=== PATIENT | male | born 1945 | race African-American/Black ===

== ENCOUNTER 2023-12-06 16:01 | Inpatient (IN) | payer MEDICARE, OTHER, SELFPAY ==
[2023-12-06] VITALS (8 sets, daily range): BP systolic 113–157; BP diastolic 48–70; BMI 25.2; BMI 24.0
[2023-12-06 12:07] LABS: % Basophils 0.4 % (0-2); % Eosinophils 4.4 % (0-6); % Immature Granulocytes 0.3 % (0-0.5); % Lymphocytes 7.9 % (20.5-51.1); % Monocytes 10.4 % (1.7-9.3); % Neutrophils 76.6 % (42.2-75.2); Absolute Eosinophils 0.4 10^3/uL (0-0.7); Absolute Lymphocytes 0.8 10^3/uL (1.2-3.4); Absolute Neutrophils 7.5 10^3/uL (1.4-6.5); Hematocrit 40.1 % (39.0-52.0); Hemoglobin 13.2 g/dL (13.0-18.0); Mean Corp Hgb Conc. 32.9 g/dL (33.0-37.0); Mean Corpuscular Hgb 27.6 pg (27.0-31.0); Mean Corpuscular Volume 83.7 fL (80.0-94.0); Mean Platelet Volume 10.8 fL (7.4-10.4); Nucleated Red Blood Cells % 0 % (-); Platelet Count 205 10^3/uL (130-400); Red Blood Cell Count 4.79 10^6/uL (4.70-6.10); Red Cell Dist. Width 15.4 % (11.5-14.5); White Blood Cell Count 9.8 10^3/uL (4.8-10.8)
[2023-12-06 12:19] LABS: ALT (SGPT) 45 U/L (0-50); AST (SGOT) 39 U/L (17-59); Albumin 4.3 g/dl (3.5-5.0); Alkaline Phosphatase 94 U/L (38-126); Blood Urea Nitrogen 28 mg/dl (9-20); Calcium 9.7 mg/dl (8.4-10.2); Carbon Dioxide 26 mmol/L (22-30); Chloride 107 mmol/L (98-107); Glucose 123 mg/dl (70-99); Potassium 4.4 mmol/L (3.5-5.1); Sodium 139 mmol/L (135-145); Total Bilirubin 1.1 mg/dl (0.2-1.3); Total Protein 6.7 g/dl (6.3-8.2); eGFR 35.44
[2023-12-06 12:30] LABS: Troponin I 0.015 ng/ml
--- NOTE | 2023-12-06 13:11 | ED.GENMED ---
History of Present Illness
General
Chief Complaint: Fainting/Passed Out
Source: patient and spouse
Time Seen by Provider: 12/06/23 12:55
Travel History
Have you had any contact with someone who has COVID-19?: No
Do you have any symptoms of coronavirus? Fever > 100 degrees, chills, cough, shortness of breath, sore throat, loss of taste or smell, muscle aches, or headache?: No
History of Present Illness
History of Present Illness:
This patient is a very pleasant 78-year-old male who was at a service yesterday afternoon states he was wearing a sweater and felt very hot and knew he was going to pass out. He says he woke up with many people around him. There was no
reported seizure-like activity, incontinence, tongue biting, or postictal state. He denies associated chest pain or pressure, headache, neck pain, numbness, tingling, focal weakness, dyspnea, or other complaints. He has been feeling generally well
ever since with the exception of difficulty walking due to right knee and left ankle discomfort particular with trying to stand or walk. He did hit his head during this event and is on aspirin and Plavix. He denies headache, change in vision,
photophobia, change in speech, dizziness, neck pain, numbness, tingling, chest pain, dyspnea, abdominal pain, or other complaints. Patient states he has been eating and drinking as usual. He is generally compliant with his medications.
Past History
Past History
ED Past Medical History: CAD, CVA, HTN, Hypercholesterolemia and NIDDM
Social History
Tobacco: Non-smoker
Alcohol: None
Drug: None
Personal:
Living: with family
Phy Exam
Physical Exam
Physical Exam:
GENERAL: Alert , in no apparent distress
EYE: pupils equal and reactive, EOMI, no nystagmus
NECK: Supple, no significant adenopathy.
ENT: o/p clr, mmm, no lenz, no raccoon, no signs of head or facial injury noted on exam.
CARDIAC: Regular rate and rhythm .
LUNGS: Clear breath sounds bilaterally, no acute respiratory distress, no wheezes/rales/rhonchi
ABDOMEN: Soft, without focal tenderness, no r/g, no cvat
NEUROLOGICAL: Alert and oriented, no focal neuro deficits
SKIN: Warm and dry, skin intact.
MUSCULOSKELETAL: No edema, well perfused. There is tenderness to palpation noted at the right knee without bony deformity, full range of motion but does express discomfort doing this. Patient also has tenderness and at that anterior aspect of the
medial malleolus of the left ankle, no associated fibular head or foot tenderness to palpation. No deformity noted. Range of motion preserved. 2+ DP pulses bilaterally.
PSYCH: Normal and appropriate interaction.
Course
Orders/Labs/Results
Orders:
Orders
12/06/23 11:30
Electrocardiogram (*1) Urgent
Reason for Study: Chest Pain
12/06/23 11:49
Complete Blood Count/With Diff Urgent
Comprehensive Metabolic Panel Urgent
Troponin I Urgent
12/06/23 13:10
Morphine Sulfate 2 mg IV NOW STA
Ankle, left 3 view CR [CR Ankle - Left Min 3 Views ] Urgent
Comment:
Reason For Exam: fall
CR Knee- Right 4 Or More View* Urgent
Comment:
Reason For Exam: fall
12/06/23 13:14
CT Head W/o Iv Contrast Stat
Comment:
Reason For Exam: syncope
12/06/23 Dinner
1800 calorie (15 carb) Diabetic
At Your Request: Full Participation
12/06/23 15:01
UA Reflex to Culture [Urinalysis Reflex To Culture] Stat
Date Specimen was Collected: 12/06/23
Time Specimen was Collected: 14:42
Urine Sodium Stat
Date Specimen was Collected: 12/06/23
Time Specimen was Collected: 14:42
12/06/23 15:27
Admit/Transfer Patient As Directed
Co-Sign Provider:
Level of Care: Inpatient admission
Assign to:: Telemetry
Physician / Group: hosp
Diagnosis: Syncope
Reason for Telemetry: Medication for Arrhythmia
Date to Stop Telemetry: 12/08/23
Time to Stop Telemetry: 11:00
Reason for Hospitalization: syncope/ ANDREA
Expected length of stay greater than two midnights?: Yes
ELOS- Estimated Length of Stay in days: 3
I certify the patient meets the requirements for IP care: Yes
12/06/23 15:31
Code Status As Directed
Resuscitation Status: Full Code
12/06/23 15:36
NEPHROLOGY CONSULT Routine
Consulting Provider: Blanche Mitchell
Was physician already notified: Yes
12/06/23 15:40
CARDIOLOGY CONSULT Routine
Consulting Provider: Akbar Cao
Was physician already notified: Yes
12/06/23 15:48
Dextrose 50%-Water [Dextrose 50% Syringe] 12.5 grams IV [id number] PRN
Glucagon [GlucaGen] 1 mg IM PRN PRN
Bedside Glucose Monitoring As Directed
Frequency: AC&HS
Comment: Change to q6h if pt on TPN, tube feeding or not eating
12/06/23 16:00
HydrALAZINE [Apresoline] 50 mg PO TID
12/06/23 16:04
0.9% Sodium Chloride 1000 ml [Nss] 1,000 ml IV 60 mls/hr
Acetaminophen [Tylenol] 650 mg PO Q4HPRN PRN
Albuterol Nebs [Ventolin Nebules] 2.5 mg INH R Q4HPRN PRN
Albuterol [ProAIR HFA INHALER] 2 puff INH R Q4HPRN PRN
Nitroglycerin Sublingual [Nitrostat (Sublingual)] 0.4 mg SL [id number] PRN
12/06/23 16:04
Activity As Directed
Activity Level: With Assistance
Intake/ Output As Directed
Frequency: Per unit guidelines
Vital Signs As Directed
Frequency: Per unit guidelines
DX Deep Vein Thrombosis Video Routine
12/06/23 16:30
Insulin Aspart Corrective Low [Novolog Flexpen-Low Resistance] See Protocol SC AC
12/06/23 17:55
Troponin I Q6H
12/06/23 18:00
Atorvastatin [Lipitor] 80 mg PO QPM
Pantoprazole [Protonix] 40 mg PO QPM
12/06/23 20:00
Allopurinol [Zyloprim] 100 mg PO BID
Amlodipine [Norvasc] 5 mg PO BID
Heparin 5,000 units SC Q12
12/06/23 22:04
Troponin I Q6H
12/07/23 06:16
Basic Metabolic Panel IN AM
Glycohemoglobin (HgbA1c) IN AM
Troponin I Q6H
12/07/23 08:00
Aspirin Chewable [Low Strength Aspirin] 81 mg PO DAILY
Clopidogrel Bisulfate [Plavix] 75 mg PO DAILY
Dapagliflozin [Farxiga] 10 mg PO DAILY
Ezetimibe [Zetia] 10 mg PO DAILY
ISOSORBIDE MONOnitrate ER [Imdur (Extended Release)] 60 mg PO DAILY
Tiotropium [place] 2.5 Mcg [Spiriva Respimat 2.5 Mcg] 2 puff INH R DAILY
12/08/23 06:00
Basic Metabolic Panel IN AM
12/08/23 11:00
DC Protocol for Telemetry ONCE
12/09/23 06:00
Basic Metabolic Panel IN AM
Abnormal Lab Results
12/06/23 12/06/23
11:49 15:01
MCHC 32.9 L g/dL
(33.0-37.0)
RDW 15.4 H %
(11.5-14.5)
MPV 10.8 H fL
(7.4-10.4)
Absolute Neuts (auto) 7.5 H 10^3/uL
(1.4-6.5)
Absolute Lymphs (auto) 0.8 L 10^3/uL
(1.2-3.4)
Absolute Monos (auto) 1.0 H 10^3/uL
(0.1-0.6)
Neutrophils % 76.6 H %
(42.2-75.2)
Lymphocytes % 7.9 L %
(20.5-51.1)
Monocytes % 10.4 H %
(1.7-9.3)
BUN 28 H mg/dl
(9-20)
Creatinine 1.9 H mg/dL
(0.7-1.3)
Glucose 123 H mg/dl
(70-99)
Urine Glucose 3+ A
(Negative)
12/06/23 11:49
12/06/23 11:49
Vital Signs
Initial and Last Documented VS:
Initial Vital Signs
Temp Pulse Resp BP Pulse Ox
98.7 F 66 20 151/54 93
12/06/23 11:23 12/06/23 11:23 12/06/23 11:23 12/06/23 11:23 12/06/23 11:23
Last Documented Vital Signs
Temp Pulse Resp BP Pulse Ox
99.1 F 70 20 154/64 100
12/07/23 11:24 12/07/23 11:24 12/07/23 11:24 12/07/23 11:24 12/07/23 11:24
*Critical Care Note
Total Time (30-74mins, 75-104mins- exclusive of procedures): Not Applicable
Update Note
Update Note:
Patient presents to the Emergency Department with __syncopal event
Number and Complexity of Problems Addressed at the Encounter
� Chronic conditions affecting care:
� Acute Exacerbation and/or Progression of Chronic Illness:
� Differential Diagnosis includes: But not limited to dehydration, electrolyte disturbance, vasovagal events, etc. etc.
Amount and/or Complexity of Data to be Reviewed and Analyzed
� I performed an independent evaluation of and my interpretation is:
EKG: Read by me, normal sinus rhythm Mobitz 1, no acute ischemia
CT:
Xrays:no fx noted, read by me
Laboratory Studies:new onset renal insufficiency
Other:
� Review of other/old records reveals: Patient was hospitalized July 2023 with a non-STEMI noted to have a apical LAD lesion, had medication changes and is maintained on aspirin and Plavix. He developed renal insufficiency at
that time was thought to be prerenal in nature, but improved by discharge.
� Clinical information was obtained by an independent historian: who is at bedside
� Prescriptions/Medications Considered but not given:
� Further testing considered but not performed:
Risk of Complications and/or Morbidity or Mortality of Patient Management
� Social determinants of health affecting care:
� Discussion with other providers (PCP, Hospitalists, Consultants, etc):
� Escalation of care including admission/observation vs risk of discharge considered: 78 yr old male s/p syncope with new onset renal insufficiency (GFR now 35, nl >60). Does have variety of meds that may be contributing to this.
C/o knee/ankle pain however no fx noted, suspect strain clinically. Case d/w hospitalist Dr Moody for admission.
ED Attending Note
-
Portions of this chart may have been created with voice recognition software.� Occasional wrong word or��sound alike� substitutions may have occurred due to the inherent limitations of voice recognition software.
Discharge Plan
Departure
Patient Disposition: Admit
Date of Disposition: 12/06/23
Time of Disposition: 14:52
Admit to: Telemetry
Presentation/result/management discussed w/ accepting MD/DO: Hospitalist
Condition: Fair
Discharge Problem:
Acute renal insufficiency, Syncope
Interventions
Interventions:
*Risk Screen - Suicide Last Done: 12/06/23 11:25
*General Assessment Last Done: 12/06/23 11:25
*Neglect/Abuse Screening Last Done: 12/06/23 11:25
ED- Fall Risk Assessment Last Done: 12/06/23 19:25
*ED COVID-19 Vaccine History Last Done: 12/06/23 13:11
*Nursing Disposition Last Done: 12/06/23 19:25
ED- Cardiac Assessment Last Done: 12/06/23 13:11
ED- Neurological Assessment Last Done: 12/06/23 13:07
Discharge Date and Time
Discharge Date/Time: 12/06/23 19:25
[2023-12-06] MEDS: MORPHINE SULFATE 2 MG IV (13:21)
[2023-12-06 15:08] LABS: Urine Albumin Trace (Neg - Trace); Urine Bilirubin Negative (Negative); Urine Character Clear (Clear); Urine Color Yellow; Urine Glucose 3+ (Negative); Urine Ketone Negative (Negative); Urine Leukocyte Negative (Negative); Urine Nitrite Negative (Negative); Urine Occult Blood Negative (Negative); Urine Specific Gravity 1.015 (<1.030); Urine Urobilinogen Negative (Neg - 1+)
--- NOTE | 2023-12-06 15:50 | HPS.HSE ---
Family Physician
-
Family Physician: LUCIANA Gabriel
Chief Complaint
-
Passed out at a memorial service yesterday
History of Present Illness
78-year-old male who was at a service yesterday afternoon states he was wearing a sweater and felt very hot and knew he was going to pass out.� He says he woke up with many people around him.
� There was no reported seizure-like activity, incontinence, tongue biting, or postictal state.�
He denies associated chest pain or pressure, headache, neck pain, numbness, tingling, focal weakness, dyspnea, or other complaints.� He has been feeling generally well ever since with the exception of difficulty walking due to right knee and left
ankle discomfort particular with trying to stand or walk.� He did hit his head during this event and is on aspirin and Plavix.
� He denies headache, change in vision, photophobia, change in speech, dizziness, neck pain, numbness, tingling, chest pain, dyspnea, abdominal pain, or other complaints.� Patient states he has been eating and drinking as usual.� He is generally
compliant with his medications.
Medical History
Past Medical History
Past Medical History: Reports Arrhythmia (Second-degree Mobitz 1), CAD (NSTEMI in July), COPD, Dementia, Hypercholesterolemia, NIDDM, ME and Renal Failure
Past Surgical History: Reports None and Cardiac
Social History
Tobacco: Non-smoker
Alcohol: None
Drug: None
Personal:
Living: With Family
Employment: Retired
Family History
Family History: Not pertinent
Allergies / Home Medications
Allergies reflects when Allergies were last updated in [facility].
Home Medications with original date entered in [facility]
Allergy/Medication List:
Allergies
Allergy/AdvReac Type Severity Reaction Status Date / Time
No Known Allergies Allergy Verified 07/23/23 22:26
Home Medications
allopurinol 100 mg tablet 100 mg PO BID Gout 07/26/20
pantoprazole 40 mg tablet,delayed release 40 mg PO QPM Gastrointestinal Issue 07/26/20
albuterol sulfate 90 mcg/actuation aerosol inhaler 2 puff inhalation R Q4HPRN PRN sob/wheezing 07/03/23
atorvastatin 40 mg tablet 80 mg PO QPM High Cholesterol 07/03/23
colchicine 0.6 mg tablet 0.6 mg PO DAILYPRN PRN gout 07/03/23
dapagliflozin propanediol 10 mg tablet (Farxiga) 10 mg PO DAILY Diabetes 07/03/23
furosemide 40 mg tablet 40 mg PO DAILY Fluid Retention/Swelling 07/03/23
umeclidinium 62.5 mcg-vilanterol 25 mcg/actuation powdr for inhalation (Anoro Ellipta) 1 inh inhalation R DAILY Lung/Breathing Issues 07/03/23
aspirin 81 mg chewable tablet 81 mg PO DAILY Blood Clot Prevention/Tx 07/23/23
clopidogrel 75 mg tablet 75 mg PO DAILY #30 tabs 07/27/23
ezetimibe 10 mg tablet 10 mg PO DAILY #30 tabs 07/27/23
isosorbide mononitrate 60 mg tablet,extended release 24 hr 60 mg PO DAILY #30 tabs 07/27/23
nitroglycerin 0.4 mg sublingual tablet 0.4 mg sublingual [id number] PRN ANGINA #30 tabs 07/27/23
amlodipine 5 mg tablet 5 mg PO DAILY Blood Pressure 12/06/23
glimepiride 2 mg tablet 2 mg PO DAILY 12/06/23
hydralazine 50 mg tablet 50 mg PO TID 12/06/23
metformin 500 mg tablet,extended release 24 hr 500 mg PO DAILY 12/06/23
Review of Systems
-
Unable to obtain full review of systems at this time due to: Dementia (Mild)
History Source: Patient and Family
Cardiac: Reports No Symptoms
Abdomen/GI: Reports No Symptoms
Musculoskeletal: Reports Muscle Pain, Muscle Stiffness and Edema (Left ankle swelling)
Physical Exam
Vital Signs
Vital Signs
Temp Pulse Resp BP Pulse Ox
98.7 F 66 21 157/70 95
12/06/23 11:23 12/06/23 13:00 12/06/23 13:00 12/06/23 13:00 12/06/23 13:00
Physical Exam
General: Well Developed
HEENT: NormoCephalic (Slight bump or bruise in the left occipital parietal region no fluctuance)
Respiratory: Clear
Cardiac: S1/S2 and Regular Rhythm (Mobitz 1 block)
GI: Soft
Musculoskeletal: Edema, Left Lower Extremity (Ankle tender swollen)
Neuro: Awake, Alert, Oriented, AO x 3 and No Motor Deficits
Psych: Calm
Laboratory Results
-
12/06/23 11:49
12/06/23 11:49
Laboratory Results
Total Bilirubin 1.1 mg/dl (0.2-1.3) 12/06/23 11:49
AST 39 U/L (17-59) 12/06/23 11:49
ALT 45 U/L (0-50) 12/06/23 11:49
Alkaline Phosphatase 94 U/L (38-126) 12/06/23 11:49
Troponin I 0.015 ng/ml 12/06/23 11:49
Data Reviewed
-
Critical Care Time (in minutes): 67
Diagnostic Radiology: Report Reviewed by me (X-rays of the left knee and ankle pending)
CT Scan: Report Reviewed by me (Old 3 cm cortical infarct posterior lateral aspect of the left frontal lobe/no acute findings) and Discussed with Physician
Lab Data: Labs Reviewed by me
Impression/Plan
-
IMPRESSION:
78-year-old male who was at a service yesterday afternoon states he was wearing a sweater and felt very hot and knew he was going to pass out.� He says he woke up with many people around him.
� There was no reported seizure-like activity, incontinence, tongue biting, or postictal state.�
He denies associated chest pain or pressure, headache, neck pain, numbness, tingling, focal weakness, dyspnea, or other complaints.� He has been feeling generally well ever since with the exception of difficulty walking due to right knee and left
ankle discomfort particular with trying to stand or walk.� He did hit his head during this event and is on aspirin and Plavix.
� He denies headache, change in vision, photophobia, change in speech, dizziness, neck pain, numbness, tingling, chest pain, dyspnea, abdominal pain, or other complaints.� Patient states he has been eating and drinking as usual.� He is generally
compliant with his medications.
Syncopal event
-Unclear etiology may have been vasovagal/
-Known history of Mobitz 1 heart block which persists
-Unclear may have had further block as cause of event
-Not on any chronotropic medications
-Last documented Mobitz 1 was back in July at time of NSTEMI at that time beta-blockade was stopped
-Telemetry/cardiology consultation
Acute kidney injury on chronic kidney disease stage IIIb
-Hold nephrotoxic's
-Hold furosemide
-Hold glimepiride
-Cautious hydration
-Continue Farxiga for now
-Trend BMP
-Nephrology consult
Coronary artery disease
-Prior RCA stent/continue Plavix and aspirin
-Isosorbide to continue
-Recent NSTEMI with apical LAD occlusion noted preserved EF
-Continue statin and Zetia
Okw-twmcnjv-mndegjfof diabetes mellitus
-Blood sugar at the time of event no documented hypoglycemia
-Hold glimepiride
-Low-dose sliding scale coverage
-Hold metformin
Essential hypertension
-Continue amlodipine, hydralazine,
At time of syncopal event
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
-X-rays of the knee and ankle pending
-PT/OT assessment if inability to weight-bear will get orthopedic consultation pending x-ray results
PLAN: Admit to telemetry
Full CODE STATUS
DVT prophylaxis with heparin
[2023-12-06 16:16] LABS: Glucose - Point of Care 71 mg/dl (70-99)
[2023-12-06] MEDS: APRESOLINE 50 MG PO ×2 (16:18→20:47)
[2023-12-06] MEDS: NSS 1000 IV (16:19)
--- NOTE | 2023-12-06 16:37 | CON.CAR ---
Addendum entered and electronically signed by Akbar Cao MD 12/06/23 17:27:
78-year-old man well known to me with a history of type I second-degree AV block, now admitted with a syncopal episode when attending awake on December 04. He had been standing at the [employer] [place] [employer] [place], became hot, somewhat nauseated, walked to the
window and fell sustaining close head injury and knee and left foot injury. He called [facility] cardiology and was instructed to present to the emergency department. He has no lightheadedness, his dyspnea is baseline given his COPD and prior
right lobectomy of the right and left lungs. Was doing well when last seen in the office in November 2023. 1 other syncopal episode 2 or 3 years ago
PMH: HFpEF, CAD, Xience stents 2019 in proximal to mid RCA, occluded apical LAD by cardiac catheterization 2022, hypertension, mild PAD, COPD, stage IIIb chronic kidney disease, lung cancer with right lobectomy in the , Pancoast tumor left lung
2007, treated with radiation, lobectomy, chemo, hyperlipidemia, diabetes, history of TIA, hypertension hyperlipidemia CVA
SH: , retired, likely going back to work
PSH/FH: See below
Allergies none
Outpatient meds, see summary screen
ROS negative except as above
149/56, pulse 66, resp rate 21, head neck exam unremarkable, diminished breath sounds, JVD okay intermittently irregular, no obvious murmurs, abdomen benign, extremities not much edema, left knee and foot and ankle surgeon, neuro nonfocal
7-day monitor November 2023: First-degree AV block with second-degree AV block and 2-1 conduction, third-degree AV block present at times, with junctional escape and A-V dissociation, no pauses over 2 seconds, average heart rate 62 bpm
Hemoglobin 13.2, white count 9.8, platelets 205, creatinine 1.9, was 1.3 in July, creatinine was 1.7 in September
ECG sinus rhythm with second-degree AV block, relatively high-grade and junctional escape producing frequent A-V dissociation
Assessment:
Presented 12/06/2023 with syncope, dizziness
ANDREA on CKD
Bradycardia with 2nd Type 2 heart block
CAD
s/p overlapping 3.5 mm and 3.0 mm Xience stents�to RCA 07/26/20
stable and patent RCA stents, new apical LAD 100% occlusion and stable vs slightly angiographically worse 70-80% Diag-1 lesion by cath 07/26/23Second-degree AV block- chronic
Chronic heart failure with preserved ejection fraction
COPD
Chronic kidney disease stage IIIb
History of lung cancer status post lobectomy
Diabetes type 2
Hypertension
Hyperlipidemia
TIA
Plan:
He presents with syncope that sounds classically vagal, but he has fairly advanced second-degree AV block as well, complicating his management and decision making regarding necessity of pacemaker implantation. Under normal circumstances, pacemaker
implantation is not indicated.
He has ANDREA on CKD, but this is relatively modest, with a history of HFpEF and his most recent creatinine was 1.7. We will need to be cautious in terms of hydration, and I would restart furosemide soon.
Will discuss with electrophysiology as to whether or not we should continue to follow expectantly with second-degree AV block. Although he had second-degree AV block on monitor earlier this year, his average heart rate was 60 bpm and he is rarely
symptomatic to the best of our knowledge.
Further management to be based upon the results of his clinical course.
Original Note:
Consultation
Consultation Request
Date/Time Consultation Requested: 12/06/2023
Date/Time Consultation Performed: 12/06/2023
Requesting Provider: Dr. Hairston
Performing Provider: Melissa Nunez PA-C for Dr. PHILIP Cao
Reason for Consultation: Syncope
Medical History
-
History of Present Illness:
Patient is a 78-year-old male with complex past medical history including coronary artery disease status post RCA PCI 2019, second-degree heart block, chronic heart failure with preserved ejection fraction, chronic kidney disease stage IIIb, COPD,
peripheral vascular disease, hypertension, hyperlipidemia, diabetes type 2, and status post right lobectomy with history of lung cancer in 1989 and 2007. Patient reports he was recently seen by Dr. Cao in early November 2023 and noted be
hypertensive. His hydralazine was increased to 50 mg 3 times daily for hypertension. He wore an outpatient monitor which was completed 11/12/2023 which demonstrated predominantly sinus rhythm with first-degree AV block as well as second-degree type
I with 2-1 conduction which accounted for less than 1% of total time and high-grade AV block with junctional escape producing AV disassociation during sleep. There were no pauses in excess of 2 seconds. There was very rare PVCs.
Patient reports he went to [employer] yesterday morning and forgot to take his morning medications. When he returned from [employer] he took them late morning/early afternoon and then proceeded to go to a week for a close friend that he lost. He reports
he started to feel warm and flush and got dizzy. Next thing you know he woke up on the floor with people standing around him. He denied loss of bowel or bladder function. Given complaints of difficulty walking with knee and ankle discomfort he
decided to come to the emergency department for evaluation. He also admitted to hitting his headache. In emergency nursing department chairperson CT was unremarkable. Troponin was negative x 1. EKG showed sinus rhythm with second-degree AV block type I. Blood
pressure was stable. He was noted to have ANDRAE with creatinine of 1.9. Patient admits that he probably was not well-hydrated yesterday or today. Currently he denies chest pain, shortness of breath, dizziness, lightheadedness, edema, orthopnea or
PND. He reports his weight has been stable at home. He has been compliant taking his medications.
PMH:
CAD
s/p overlapping 3.5 mm and 3.0 mm Xience stents�to RCA 07/26/20
stable and patent RCA stents, new apical LAD 100% occlusion and stable vs slightly angiographically worse 70-80% Diag-1 lesion by cath 07/26/23
Second-degree AV block- chronic
Chronic heart failure with preserved ejection fraction
COPD
Chronic kidney disease stage IIIb
History of lung cancer status post lobectomy
Diabetes type 2
Hypertension
Hyperlipidemia
TIA
Past Medical History
Past Medical History: Other (see hpi)
Past Surgical History: Cardiac (Right coronary artery ESE x 2 RCA 2019) and Other (Thoracotomy 2007, right lung lobectomy 1996, 2007, hernia repair, bilateral cataract extraction)
Social History
Tobacco: Former Smoker
Alcohol: None
Drug: None
Personal:
Living: With Family
Employment: Retired
Family History
Family History: Diabetes, Hypertension and Other ( stroke)
Allergies / Home Medications
Allergy/AdvReac Type Severity Reaction Status Date / Time
No Known Allergies Allergy Verified 07/23/23 22:26
Medication Instructions Recorded Confirmed Type
allopurinol 100 mg tablet 100 mg PO BID Gout 07/26/20 12/06/23 History
pantoprazole 40 mg tablet,delayed 40 mg PO QPM Gastrointestinal Issue 07/26/20 12/06/23 History
release
albuterol sulfate 90 mcg/actuation 2 puff inhalation R Q4HPRN PRN 07/03/23 12/06/23 History
aerosol inhaler sob/wheezing
atorvastatin 40 mg tablet 80 mg PO QPM High Cholesterol 07/03/23 12/06/23 History
colchicine 0.6 mg tablet 0.6 mg PO DAILYPRN PRN gout 07/03/23 12/06/23 History
dapagliflozin propanediol 10 mg 10 mg PO DAILY Diabetes 07/03/23 12/06/23 History
tablet (Farxiga)
furosemide 40 mg tablet 40 mg PO DAILY Fluid 07/03/23 12/06/23 History
Retention/Swelling
umeclidinium 62.5 mcg-vilanterol 1 inh inhalation R DAILY 07/03/23 12/06/23 History
25 mcg/actuation powdr for Lung/Breathing Issues
inhalation (Anoro Ellipta)
aspirin 81 mg chewable tablet 81 mg PO DAILY Blood Clot 07/23/23 12/06/23 History
Prevention/Tx
clopidogrel 75 mg tablet 75 mg PO DAILY #30 tabs 07/27/23 12/06/23 Rx
ezetimibe 10 mg tablet 10 mg PO DAILY #30 tabs 07/27/23 12/06/23 Rx
isosorbide mononitrate 60 mg 60 mg PO DAILY #30 tabs 07/27/23 12/06/23 Rx
tablet,extended release 24 hr
nitroglycerin 0.4 mg sublingual 0.4 mg sublingual [id number] PRN 07/27/23 12/06/23 Rx
tablet ANGINA #30 tabs
amlodipine 5 mg tablet 5 mg PO DAILY Blood Pressure 12/06/23 12/06/23 History
glimepiride 2 mg tablet 2 mg PO DAILY 12/06/23 12/06/23 History
hydralazine 50 mg tablet 50 mg PO TID 12/06/23 12/06/23 History
metformin 500 mg tablet,extended 500 mg PO DAILY 12/06/23 12/06/23 History
release 24 hr
Review of Systems
-
History Source: Patient
All other systems: Negative unless noted
Physical Exam
Vital Signs
Temp Pulse Resp BP Pulse Ox
98.7 F 66 21 149/56 95
12/06/23 11:23 12/06/23 13:00 12/06/23 13:00 12/06/23 16:18 12/06/23 13:00
GEN: No distress, awake, Ox3
HEENT: supple, anicteric, mmm
LUNGS: CTA, no wheezes/rales
CV: Reg but bradycardic, S1/S2, 1/6 syst LSB, no murmur
ABD: soft, BS+, NT/ND
EXT: No edema
NEURO: Gross non-focal
SKIN: No rash
Lab Results
12/06/23 11:49
12/06/23 11:49
Troponin I 0.015 ng/ml 12/06/23 11:49
Impression / Plan
-
PCP: Shaggy Bishop ENMA
Cardiology: Dr. PHILIP Cao
Assessment:
Presented 12/06/2023 with syncope, dizziness
ANDREA on CKD
Bradycardia with 2nd Type 2 heart block
CAD
s/p overlapping 3.5 mm and 3.0 mm Xience stents�to RCA 07/26/20
stable and patent RCA stents, new apical LAD 100% occlusion and stable vs slightly angiographically worse 70-80% Diag-1 lesion by cath 07/26/23
Second-degree AV block- chronic
Chronic heart failure with preserved ejection fraction
COPD
Chronic kidney disease stage IIIb
History of lung cancer status post lobectomy
Diabetes type 2
Hypertension
Hyperlipidemia
TIA
Echo 07/27/23: EF 55-60%, mid to distal inferior wall appears hypokinetic, mild conc LVH, structurally normal AV without /AR, no MR
Cardiac cath 07/2023:stable and patent RCA stents, new apical LAD 100% occlusion and stable vs slightly angiographically worse 70-80% Diag-1 lesion
Ex Mibi 07/25: Small mild to moderate mildly reversible inferolateral and inferior defect at 3.4 METS.� EF 77%
7 day bardy Monitor completed 11/12/2023: Predominantly sinus rhythm with first-degree AV block as well as second-degree type I with 2-1 conduction which accounted for less than 1% of total time and high-grade AV block with junctional escape producing
AV disassociation during sleep. There were no pauses in excess of 2 seconds. There was very rare PVCs. Range 36 to 105 bpm, average 62 bpm
Plan:
Patient is a 78-year-old male with complex past medical history including coronary artery disease status post RCA PCI 2019, second-degree heart block, chronic heart failure with preserved ejection fraction, chronic kidney disease stage IIIb, COPD,
peripheral vascular disease, hypertension, hyperlipidemia, diabetes type 2, and status post right lobectomy with history of lung cancer in 1989 and 2007. Patient reports he was recently seen by Dr. Cao in early November 2023 and noted be
hypertensive. His hydralazine was increased to 50 mg 3 times daily for hypertension. He wore an outpatient monitor which was completed 11/12/2023 which demonstrated predominantly sinus rhythm with first-degree AV block as well as second-degree type
I with 2-1 conduction which accounted for less than 1% of total time and high-grade AV block with junctional escape producing AV disassociation during sleep. There were no pauses in excess of 2 seconds. There was very rare PVCs.
Patient reports he went to [employer] yesterday morning and forgot to take his morning medications. When he returned from [employer] he took them late morning/early afternoon and then proceeded to go to a week for a close friend that he lost. He reports
he started to feel warm and flush and got dizzy. Next thing you know he woke up on the floor with people standing around him. He denied loss of bowel or bladder function. Given complaints of difficulty walking with knee and ankle discomfort he
decided to come to the emergency department for evaluation. He also admitted to hitting his headache. In emergency nursing department chairperson CT was unremarkable. Troponin was negative x 1. EKG showed sinus rhythm with second-degree AV block type I. Blood
pressure was stable. He was noted to have ANDREA with creatinine of 1.9. Patient admits that he probably was not well-hydrated yesterday or today. Currently he denies chest pain, shortness of breath, dizziness, lightheadedness, edema, orthopnea or
PND. He reports his weight has been stable at home. He has been compliant taking his medications.
-Presents 12/06/2023 with syncope on 12/05/2023 associated with dizziness and lightheadedness.
-Patient noted to have ANDREA on CKD with creatinine of 1.9. Syncopal episode may be secondary to dehydration.
-Hold Glimepiride and Lasix with ANDREA. Follow creatinine
-EKG shows sinus rhythm with second-degree AV block type I. Recent outpatient monitor showed various levels of AV block ranging from first-degree as well as second-degree with 2-1 conduction. May need to consider placement of pacemaker.
-Monitor on telemetry overnight.
-Hypertension blood pressure controlled on hydralazine, amlodipine.
-Consider checking orthostatic blood pressure
-Known coronary artery disease with recent cardiac catheterization July 2023 with stable CAD but ruled on for NSTEMI at that time. Continue aggressive medical management with aspirin, Plavix, Zetia, statin. Bradycardia and heart block prevent
initiation of beta-aníbal.
Data Reviewed
-
EKG: Report Reviewed by me, Discussed with Physician, Discussed with Patient and Discussed with Family
Radiology: Report Reviewed by me, Discussed with Physician, Discussed with Patient and Discussed with Family
CT Scan: Report Reviewed by me, Discussed with Physician, Discussed with Patient and Discussed with Family
Labs: Labs Reviewed by me, Discussed with Physician, Discussed with Patient and Discussed with Family
Old Records: Reviewed
--- NOTE | 2023-12-06 16:42 | W.CON.NEPH ---
Consultation
-
Date/Time Consultation Requested: 12/05 15:40
Date/Time Consultation Performed: 12/05 4:46PM
Requesting Provider: Ta Hooks
Performing Provider: Blanche Mitchell
Reason for Consultation: ANDREA on CKD
Medical History
-
Chief Complaint: ANDREA on CKD
History of Present Illness:
Mr. Pelletier is a 78YOM with PMH of CAD (NSTEMI 2022), COPD, dementia, DLD, DM, CKD 3 (bl Cr 1.5) who presents to the hospital after a syncopal episode yesterday. He states that he did not eat since Wednesday evening because he was 'too busy' and also
has minimal water intake. He was at a service yesterday and felt very hot and knew he was going to pass out. He is accompanied by his who states that there was no seizure like activity, incontinence, tongue biting. He denies associated
chest pain ore pressure, headache, dyspnea, focal weakness. He states that he was in his usual state of health until he passed out and feels normal now. He has been taking all of his medications as prescribed. Denies diarrhea, trouble with urination
at this time.
Past Medical History
Lung cancer s/p lobectomy
T2DM
HTN
stroke
CAD s/p stenting
gout
DLD
RA
Past Medical History: CAD, HTN and NIDDM
Past Surgical History: Other (lobectomy 1996. 2007 )
Social History
Tobacco: Former Smoker
Alcohol: Occasional
Drug: None
Personal:
Living: With Family
Family History
Father with hypertension
Mother with diabetes and kidney disease
Allergies / Home Medications
Allergy/AdvReac Type Severity Reaction Status Date / Time
No Known Allergies Allergy Verified 07/23/23 22:26
Medication Instructions Recorded Confirmed Type
allopurinol 100 mg tablet 100 mg PO BID Gout 07/26/20 12/06/23 History
pantoprazole 40 mg tablet,delayed 40 mg PO QPM Gastrointestinal Issue 07/26/20 12/06/23 History
release
albuterol sulfate 90 mcg/actuation 2 puff inhalation R Q4HPRN PRN 07/03/23 12/06/23 History
aerosol inhaler sob/wheezing
atorvastatin 40 mg tablet 80 mg PO QPM High Cholesterol 07/03/23 12/06/23 History
colchicine 0.6 mg tablet 0.6 mg PO DAILYPRN PRN gout 07/03/23 12/06/23 History
dapagliflozin propanediol 10 mg 10 mg PO DAILY Diabetes 07/03/23 12/06/23 History
tablet (Farxiga)
furosemide 40 mg tablet 40 mg PO DAILY Fluid 07/03/23 12/06/23 History
Retention/Swelling
umeclidinium 62.5 mcg-vilanterol 1 inh inhalation R DAILY 07/03/23 12/06/23 History
25 mcg/actuation powdr for Lung/Breathing Issues
inhalation (Anoro Ellipta)
aspirin 81 mg chewable tablet 81 mg PO DAILY Blood Clot 07/23/23 12/06/23 History
Prevention/Tx
clopidogrel 75 mg tablet 75 mg PO DAILY #30 tabs 07/27/23 12/06/23 Rx
ezetimibe 10 mg tablet 10 mg PO DAILY #30 tabs 07/27/23 12/06/23 Rx
isosorbide mononitrate 60 mg 60 mg PO DAILY #30 tabs 07/27/23 12/06/23 Rx
tablet,extended release 24 hr
nitroglycerin 0.4 mg sublingual 0.4 mg sublingual [id number] PRN 07/27/23 12/06/23 Rx
tablet ANGINA #30 tabs
amlodipine 5 mg tablet 5 mg PO DAILY Blood Pressure 12/06/23 12/06/23 History
glimepiride 2 mg tablet 2 mg PO DAILY 12/06/23 12/06/23 History
hydralazine 50 mg tablet 50 mg PO TID 12/06/23 12/06/23 History
metformin 500 mg tablet,extended 500 mg PO DAILY 12/06/23 12/06/23 History
release 24 hr
Review of Systems
-
History Source: Patient and Family
All other systems: Negative unless noted
Constitutional: No Symptoms
EENT: No Symptoms
Respiratory: No Symptoms
Cardiac: No Symptoms
Abdomen/GI: No Symptoms
: No Symptoms
Musculoskeletal: No Symptoms
Skin: No Symptoms
Neurological: No Symptoms
Endocrine: No Symptoms
Hematologic/Lymphatic: No Symptoms
Physical Exam
Vital Signs
Vital Signs
Temp Pulse Resp BP Pulse Ox
98.7 F 66 21 149/56 95
12/06/23 11:23 12/06/23 13:00 12/06/23 13:00 12/06/23 16:18 12/06/23 13:00
Lab Results
WBC 9.8 10^3/uL (4.8-10.8) 12/06/23 11:49
RBC 4.79 10^6/uL (4.70-6.10) 12/06/23 11:49
Hgb 13.2 g/dL (13.0-18.0) 12/06/23 11:49
Hct 40.1 % (39.0-52.0) 12/06/23 11:49
Plt Count 205 10^3/uL (130-400) 12/06/23 11:49
Sodium 139 mmol/L (135-145) 12/06/23 11:49
Potassium 4.4 mmol/L (3.5-5.1) 12/06/23 11:49
Chloride 107 mmol/L (98-107) 12/06/23 11:49
Carbon Dioxide 26 mmol/L (22-30) 12/06/23 11:49
BUN 28 mg/dl (9-20) H 12/06/23 11:49
Creatinine 1.9 mg/dL (0.7-1.3) H 12/06/23 11:49
eGFR 35.44 12/06/23 11:49
Glucose 123 mg/dl (70-99) H 12/06/23 11:49
Calcium 9.7 mg/dl (8.4-10.2) 12/06/23 11:49
Albumin 4.3 g/dl (3.5-5.0) 12/06/23 11:49
Physical Exam
General: Awake, Alert, Oriented, No Distress and Nontoxic
HEENT: PERRL and EOMI
Respiratory: Clear
Cardiac: S1/S2
Breast: N/A
Abdomen: Soft, Nontender, Nondistended and Normal Bowel Sounds
Rectal: Deferred by Provider
Musculoskeletal: No Edema
Skin: No Rash
Neuro: Nonfocal/Grossly Intact
Hematologic/Lymphatic: No Cervical Lymphadenopathy
Psych: Mood/afflect pleasant and Insight/judgement good
Assessment/Plan
-
Assessment:
Syncopal Event
ANDREA on CKD
CAD
NIDDM
HTN
Plan:
- bl Cr 1.5 per last nephrology visit with Dr. Balderrama, now elevated to 1.9
- hold farxiga, lasix, glimeride, metformin
- UA with glucosuria
- obtain urine Na
- obtain bladder scan
- agree with gentle hydration with NS
- reviewed KUS from 2020. noted to have bilateral renal cysts and no PVR
Data Reviewed
-
CT Scan: Report Reviewed by me
Labs: Labs Reviewed by me
Old Records: Reviewed
[2023-12-06] MEDS: PROTONIX 40 MG PO (17:45)
[2023-12-06] MEDS: LIPITOR 80 MG PO (17:45)
[2023-12-06 18:31] LABS: Urine Sodium 59 mmol/L (30-90)
[2023-12-06 18:37] LABS: Troponin I 0.015 ng/ml
[2023-12-06] MEDS: NORVASC 5 MG PO (20:47)
[2023-12-06] MEDS: ZYLOPRIM 100 MG PO (20:47)
[2023-12-06] MEDS: HEPARIN 5000 UNITS SC (20:47)
--- NOTE | 2023-12-06 21:00 | PTCARENOTE ---
Patient admitted into room 402-1. He is awake and alert oriented x3. He was a stand and pivot to the bed, using his cane and an assistance of one. He has a very sore left ankle, and sore right knee. He offers no complaints. Patient instructed to
ring for assistance if he needs to get out of bed, he verbalized understanding. Call callejas in reach.
[2023-12-06 21:16] LABS: Glucose - Point of Care 145 mg/dl (70-99)
[2023-12-07] VITALS (9 sets, daily range): BP systolic 123–156; BP diastolic 56–82; PULSE 68–72; BMI 24.3
[2023-12-07 01:25] LABS: Troponin I 0.014 ng/ml
[2023-12-07 06:45] LABS: Troponin I 0.013 ng/ml
[2023-12-07 07:19] LABS: Blood Urea Nitrogen 27 mg/dl (9-20); Calcium 9.3 mg/dl (8.4-10.2); Carbon Dioxide 22 mmol/L (22-30); Chloride 109 mmol/L (98-107); Estimated Creatinine Clearance 41 ml/min; Glucose 98 mg/dl (70-99); Potassium 4.1 mmol/L (3.5-5.1); Sodium 137 mmol/L (135-145)
[2023-12-07 07:24] LABS: Glucose - Point of Care 113 mg/dl (70-99)
[2023-12-07] MEDS: HEPARIN 5000 UNITS SC ×2 (07:58→20:02)
[2023-12-07] MEDS: APRESOLINE 50 MG PO ×3 (07:58→22:46)
[2023-12-07] MEDS: ZETIA 10 MG PO (07:58)
[2023-12-07] MEDS: FARXIGA 10 MG PO (08:01)
[2023-12-07] MEDS: PLAVIX 75 MG PO (08:01)
[2023-12-07] MEDS: NORVASC 5 MG PO ×2 (08:01→20:00)
[2023-12-07] MEDS: IMDUR (EXTENDED RELEASE) 60 MG PO (08:01)
[2023-12-07] MEDS: LOW STRENGTH ASPIRIN 81 MG PO (08:02)
[2023-12-07] MEDS: ZYLOPRIM 100 MG PO ×2 (08:02→20:02)
[2023-12-07] MEDS: STRIVERDI RESPIMAT 2 PUFF INH (08:23)
[2023-12-07] MEDS: SPIRIVA RESPIMAT 2.5 MCG 2 PUFF INH (08:23)
[2023-12-07 08:56] LABS: Glycohemoglobin (HgbA1c) 6.4 % (4.0-5.6)
--- NOTE | 2023-12-07 09:35 | W.PN.HOSP.TC ---
Today's Communication/Plan
-
See how he does in physical therapy today
-Continue on telemetry /cardiology evaluation for possible need for pacer
Continue IV hydration continue to hold nephrotoxins
Defer resumption of metformin and others to nephrology
Assessment / Plan
Assessment / Plan
78-year-old male who was at a service yesterday afternoon states he was wearing a sweater and felt very hot and knew he was going to pass out.� He says he woke up with many people around him.
� There was no reported seizure-like activity, incontinence, tongue biting, or postictal state.�
�He denies associated chest pain or pressure, headache, neck pain, numbness, tingling, focal weakness, dyspnea, or other complaints.� He has been feeling generally well ever since with the exception of difficulty walking due to right knee and left
ankle discomfort particular with trying to stand or walk.� He did hit his head during this event and is on aspirin and Plavix.
� He denies headache, change in vision, photophobia, change in speech, dizziness, neck pain, numbness, tingling, chest pain, dyspnea, abdominal pain, or other complaints.� Patient states he has been eating and drinking as usual.� He is generally
compliant with his medications.
Syncopal event
-Unclear etiology may have been vasovagal/
-Known history of Mobitz 1 heart block which persists
-Unclear may have had further block as cause of event
-Not on any chronotropic medications
-Last documented Mobitz 1 was back in July at time of NSTEMI at that time beta-blockade was stopped
-Telemetry/cardiology consultation
Acute kidney injury on chronic kidney disease stage IIIb
-Hold nephrotoxic's
-Farxiga
-Hold furosemide
-Hold glimepiride
-Cautious hydration
-Trend BMP>>. 1.7 baseline close to 1.4
-Nephrology consult
Coronary artery disease
-Prior RCA stent/continue Plavix and aspirin
-Isosorbide to continue
-Recent NSTEMI with apical LAD occlusion noted preserved EF
-Continue statin and Zetia
Lej-[id number] diabetes mellitus
-Blood sugar at the time of event no documented hypoglycemia
-Hold glimepiride
-Low-dose sliding scale coverage
-Hold metformin
Essential hypertension
-Continue amlodipine, hydralazine,
Had head trauma as part of episode of syncope/also inability to weight-bear on his left ankle
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
-X-rays of the knee and ankle negative for fracture
-PT/OT assessment if inability to weight-bear will get orthopedic consultation pending x-ray results
PLAN: Admit to telemetry
Full CODE STATUS
DVT prophylaxis with heparin
Anticipated Discharge: Within 24 hours
Subjective/Interval History
-
Date of Service: December 07, 2023
Uneventful night periods of bradycardia overnight in the 40s and 50s remaining asymptomatic
Objective Data
-
Labs:
Laboratory Results
12/07/23
06:16
Sodium 137
Potassium 4.1
Chloride 109 H
Carbon Dioxide 22
BUN 27 H
Creatinine 1.7 H
Glucose 98
Calcium 9.3
Vital Signs:
Vital Signs
Temp Pulse Resp BP Pulse Ox
97.8 F 76 16 156/65 93
12/07/23 07:41 12/07/23 08:30 12/07/23 08:30 12/07/23 09:33 12/07/23 08:30
I&O
12/06/23 12/07/23 12/08/23
06:59 06:59 06:59
Intake Total 750 / 750
Output Total 400 / 400
Balance 350 / 350
Review of Systems
-
History Source: Patient
Constitutional: Reports No Symptoms
EENT: Reports No Symptoms Reported
Respiratory: Reports No Symptoms
Cardiac: Reports No Symptoms
Abdomen/GI: Reports No Symptoms
Physical Exam
-
General: Well Developed
HEENT: Normocephalic
Respiratory: Clear to Auscultation
Cardiac: Irregular Rhythm (Remains in sinus rhythm with underlying second-degree AV block Mobitz 1) and Bradycardic (Times in the 40s and 50s during sleep)
GI: Soft, Nontender and Nondistended
Neuro: Awake, Alert, Oriented and AO x 3
Data Reviewed
-
Total Time Spent with Patient (in minutes): 45
Labs: Labs Reviewed by me (And down to 1.7/baseline probably close to 1.4 ,1.3)
[2023-12-07] MEDS: NSS 1000 IV ×2 (09:49→15:00)
[2023-12-07] MEDS: TYLENOL 650 MG PO ×2 (09:51→20:02)
--- NOTE | 2023-12-07 11:18 | W.PN.CARDCBS ---
Today's Communication / Plan
-
Agree with holding Lasix given ANDREA
Telemetry with second-degree AV block type I which is known. No significant pauses or high grade AV block on my review.
Would continue to monitor on telemetry while inpatient
Impression / Plan
-
PCP: Shaggy Bishop [facility]
Cardiology: Dr. PHILIP Cao
Assessment:
Presented 12/06/2023 with syncope, dizziness
ANDREA on CKD
Bradycardia with 2nd Type 2 heart block
CAD
s/p overlapping 3.5 mm and 3.0 mm Xience stents�to RCA 07/26/20
stable and patent RCA stents, new apical LAD 100% occlusion and stable vs slightly angiographically worse 70-80% Diag-1 lesion by cath 07/26/23
Second-degree AV block- chronic
Chronic heart failure with preserved ejection fraction
COPD
Chronic kidney disease stage IIIb
History of lung cancer status post lobectomy
Diabetes type 2
Hypertension
Hyperlipidemia
TIA
Echo 07/27/23: EF 55-60%, mid to distal inferior wall appears hypokinetic, mild conc LVH, structurally normal AV without /AR, no MR
Cardiac cath 07/2023:stable and patent RCA stents, new apical LAD 100% occlusion and stable vs slightly angiographically worse 70-80% Diag-1 lesion
Ex Mibi 07/25: Small mild to moderate mildly reversible inferolateral and inferior defect at 3.4 METS.� EF 77%
7 day bardy Monitor completed 11/12/2023: Predominantly sinus rhythm with first-degree AV block as well as second-degree type I with 2-1 conduction which accounted for less than 1% of total time and high-grade AV block with junctional escape producing
AV disassociation during sleep. There were no pauses in excess of 2 seconds. There was very rare PVCs. Range 36 to 105 bpm, average 62 bpm
Patient is a 78-year-old male with complex past medical history including coronary artery disease status post RCA PCI 2019, second-degree heart block, chronic heart failure with preserved ejection fraction, chronic kidney disease stage IIIb, COPD,
peripheral vascular disease, hypertension, hyperlipidemia, diabetes type 2, and status post right lobectomy with history of lung cancer in 1989 and 2007. Patient reports he was recently seen by Dr. Cao in early November 2023 and noted be
hypertensive. His hydralazine was increased to 50 mg 3 times daily for hypertension. He wore an outpatient monitor which was completed 11/12/2023 which demonstrated predominantly sinus rhythm with first-degree AV block as well as second-degree type
I with 2-1 conduction which accounted for less than 1% of total time and high-grade AV block with junctional escape producing AV disassociation during sleep. There were no pauses in excess of 2 seconds. There was very rare PVCs.
Patient reports he went to [employer] yesterday morning and forgot to take his morning medications. When he returned from [employer] he took them late morning/early afternoon and then proceeded to go to a week for a close friend that he lost. He reports
he started to feel warm and flush and got dizzy. Next thing you know he woke up on the floor with people standing around him. He denied loss of bowel or bladder function. Given complaints of difficulty walking with knee and ankle discomfort he
decided to come to the emergency department for evaluation. He also admitted to hitting his headache. In emergency line department supervisor CT was unremarkable. Troponin was negative x 1. EKG showed sinus rhythm with second-degree AV block type I. Blood
pressure was stable. He was noted to have ANDREA with creatinine of 1.9. Patient admits that he probably was not well-hydrated yesterday or today. Currently he denies chest pain, shortness of breath, dizziness, lightheadedness, edema, orthopnea or
PND. He reports his weight has been stable at home. He has been compliant taking his medications.
Plan:
-Presents 12/06/2023 with syncope on 12/05/2023 associated with dizziness and lightheadedness - describes clear prodrome to me, suspected vasovagal syncope
-Patient noted to have ANDREA on CKD with creatinine of 1.9. Dehydration may contributing as well.
-Lasix on hold with ANDREA, receiving IVF
-Telemetry with second-degree AV block type I which is known. No significant pauses or high grade AV block on my review.
-Would continue to monitor on telemetry while inpatient
-Treatment of hypertension with hydralazine and amlodipine
-Known coronary artery disease with recent cardiac catheterization July 2023 with stable CAD but ruled in for NSTEMI at that time. Continue aggressive medical management with aspirin, Plavix, Zetia, statin. Bradycardia and heart block prevent
initiation of beta-aníbal.
Progress Note - Vascular Surgery Physician
Subjective
Date of Service: December 07, 2023
NAOE. Feels well today. No lightheadedness or dizziness. No chest pain or SOB.
Objective
Labs:
12/06/23 11:49
12/07/23 06:16
Labs
Hgb 13.2 g/dL (13.0-18.0) 12/06/23 11:49
Hct 40.1 % (39.0-52.0) 12/06/23 11:49
Plt Count 205 10^3/uL (130-400) 12/06/23 11:49
Sodium 137 mmol/L (135-145) 12/07/23 06:16
Potassium 4.1 mmol/L (3.5-5.1) 12/07/23 06:16
BUN 27 mg/dl (9-20) H 12/07/23 06:16
Creatinine 1.7 mg/dL (0.7-1.3) H 12/07/23 06:16
Glucose 98 mg/dl (70-99) 12/07/23 06:16
Troponins
12/06/23 12/06/23 12/07/23
11:49 17:55 00:50
Troponin I 0.015 0.015 0.014
12/07/23
06:16
Troponin I 0.013
Vital Signs and I&O:
Vital Signs
Temp Pulse Resp BP Pulse Ox
97.8 F 76 16 156/65 93
12/07/23 07:41 12/07/23 08:30 12/07/23 08:30 12/07/23 09:33 12/07/23 08:30
Vital Signs
Temp Pulse Resp BP Pulse Ox
97.8 F 76 16 156/65 93
12/07/23 07:41 12/07/23 08:30 12/07/23 08:30 12/07/23 09:33 12/07/23 08:30
Intake & Output
12/05/23 12/06/23 12/07/23 12/08/23
06:59 06:59 06:59 06:59
Intake Total 750 / 750
Output Total 400 / 400
Balance 350 / 350
Physical Exam
Physical Exam
Gen: NAD, AAOx3
HEENT: NC/AT, sclera anicteric
Neck: No JVD
CV: RRR, NL s1/s2, no M/R/G
Lungs: CTAB
Abd: S/ND
Ext: No LE edema
Skin: Warm, dry
Neuro: Non-focal
[2023-12-07 11:30] LABS: Glucose - Point of Care 138 mg/dl (70-99)
--- NOTE | 2023-12-07 13:18 | W.PN.NEPH.PH ---
Today's Communication / Plan
-
- stop farxiga
- continue normal saline at 100cc/hr
Assessment/Plan
-
Assessment:
Syncopal Event
ANDREA on CKD
CAD
NIDDM
HTN
Plan:
- bl Cr 1.5 per last nephrology visit with Dr. Balderrama, now elevated to 1.7
- hold farxiga, lasix, glimeride, metformin. noted to be continued on farxiga, i will hold now
- patient does not drink enough water (only drinking sips for medications), might not be a good candidate for farxiga even in outpatient setting
- UA with glucosuria, likely in the setting of farxiga
- urine Na 59 --> not consistent with hypovolemia but was done while on fluids
- bladder scan without significant retention
- increase NS rate to 100cc/hr
- reviewed KUS from 2020. noted to have bilateral renal cysts and no PVR
-
-
Date of Service: December 07, 2023
CC / HPI / ROS
-
Chief Complaint:
ANDREA on CKD
History of Present Illness:
bl Cr 1.5, peak 1.9, improved to 1.7 with holding meds and gentle hydration
Review of Systems:
no complaints
feels back to his baseline state of health
Labs
-
Labs:
WBC 9.8 10^3/uL (4.8-10.8) 12/06/23 11:49
RBC 4.79 10^6/uL (4.70-6.10) 12/06/23 11:49
Hgb 13.2 g/dL (13.0-18.0) 12/06/23 11:49
Hct 40.1 % (39.0-52.0) 12/06/23 11:49
Plt Count 205 10^3/uL (130-400) 12/06/23 11:49
Sodium 137 mmol/L (135-145) 12/07/23 06:16
Potassium 4.1 mmol/L (3.5-5.1) 12/07/23 06:16
Chloride 109 mmol/L (98-107) H 12/07/23 06:16
Carbon Dioxide 22 mmol/L (22-30) 12/07/23 06:16
BUN 27 mg/dl (9-20) H 12/07/23 06:16
Creatinine 1.7 mg/dL (0.7-1.3) H 12/07/23 06:16
eGFR 40.50 12/07/23 06:16
Glucose 98 mg/dl (70-99) 12/07/23 06:16
Calcium 9.3 mg/dl (8.4-10.2) 12/07/23 06:16
Albumin 4.3 g/dl (3.5-5.0) 12/06/23 11:49
Physical Exam
-
Vital Signs:
Vital Signs
Temp Pulse Resp BP Pulse Ox
99.1 F 70 20 154/64 100
12/07/23 11:24 12/07/23 11:24 12/07/23 11:24 12/07/23 11:24 12/07/23 11:24
Cardiovascular:: Regular rate and rhythm
Respiratory:: Bilateral: CTA
Lung Excursion:: Normal
Abdomen:: Nontender and Soft
Bowel Sounds:: Normal
Extremity Edema:: +1: Bilateral:
Hairston Catheter: No
[2023-12-07 17:03] LABS: Glucose - Point of Care 127 mg/dl (70-99)
--- NOTE | 2023-12-07 17:11 | CM ---
Alert awake oriented patient who lives with his Siola who lives in a 3 story home with 4 step to enter and 12 steps to bed and bathroom. He is independent in driving and in all activities of daily living.He uses a cane.He was offered VN he
declined need.
[facility] hx /No SNF history
Pharmacy [facility]
PCP Kellie Chauhan [facility]
PLAN Home Declined VN
[2023-12-07] MEDS: LIPITOR 80 MG PO (17:46)
[2023-12-07] MEDS: PROTONIX 40 MG PO (17:46)
--- NOTE | 2023-12-07 20:00 | PTCARENOTE ---
While doing rounds with day shift RN, patient complainig of being short of breath. room air pulse ox was 95%, respirations 24.Breath sounds remain diminished. EDUCATIONAL AUDIOLOGIST aware, respiratory treatment given and CXR ordered. IVF rate was also decreased to
60cc/hr.Will continue to monitor respiratory status
[2023-12-07] MEDS: VENTOLIN NEBULES 2.5 MG INH (21:01)
--- NOTE | 2023-12-07 21:30 | PTCARENOTE ---
Patient out of bed to chair, states he is feeling better, denies shortness of breath at this time.
[2023-12-07 21:46] LABS: Glucose - Point of Care 161 mg/dl (70-99)
--- NOTE | 2023-12-08 01:52 | W.PN.UPDATE ---
Update Note
Progress Note Update
RN notified SHIRT CLOSER, patient SOB, which is new per nursing. Patient seen and evaluated, lungs course, Mildly tachypneic at 24. trace edema noted LE. Patient states, he feels SOB and it started after fluids was increased to 100cc/hr. Will do chest x-ray
and evaluate.
Noted chest Xray.
Low lung volumes again noted.
Slight prominence of the interstitial markings which may be chronic.
Questionable new small patchy opacification in the lingula, cannot exclude pneumonia.
will continue IV fluid at 60cc/hour. Denies any pain or any discomfort at present.
[2023-12-08] MEDS: NSS 1000 IV (02:55)
[2023-12-08 03:22] VITALS: BP 142/56
[2023-12-08 06:00] VITALS: BMI 24.4
[2023-12-08 07:09] LABS: Glucose - Point of Care 129 mg/dl (70-99)
[2023-12-08 07:10] VITALS: BP 158/70
[2023-12-08 07:42] LABS: Blood Urea Nitrogen 26 mg/dl (9-20); Calcium 9.1 mg/dl (8.4-10.2); Carbon Dioxide 22 mmol/L (22-30); Chloride 108 mmol/L (98-107); Estimated Creatinine Clearance 44 ml/min; Glucose 119 mg/dl (70-99); Potassium 4.1 mmol/L (3.5-5.1); Sodium 137 mmol/L (135-145); eGFR 43.56
[2023-12-08] MEDS: APRESOLINE 50 MG PO ×3 (07:59→23:27)
[2023-12-08] MEDS: ZETIA 10 MG PO (07:59)
[2023-12-08] MEDS: ZYLOPRIM 100 MG PO ×2 (08:00→20:25)
[2023-12-08] MEDS: NORVASC 5 MG PO ×2 (08:00→20:25)
[2023-12-08] MEDS: IMDUR (EXTENDED RELEASE) 60 MG PO (08:00)
[2023-12-08] MEDS: HEPARIN 5000 UNITS SC ×2 (08:00→20:25)
[2023-12-08] MEDS: PLAVIX 75 MG PO (08:00)
[2023-12-08] MEDS: LOW STRENGTH ASPIRIN 81 MG PO (08:01)
[2023-12-08] MEDS: STRIVERDI RESPIMAT 2 PUFF INH (08:24)
[2023-12-08] MEDS: SPIRIVA RESPIMAT 2.5 MCG 2 PUFF INH (08:24)
--- NOTE | 2023-12-08 09:20 | W.PN.HOSP.TC ---
Today's Communication/Plan
-
Will hold further IV fluids till seen by nephrology
Cardiology aware
Continue to monitor BMP repeat in a.m.
Increase activity and have PT OT assessment
Weightbearing as tolerated to the left leg
Assessment / Plan
Assessment / Plan
78-year-old male who was at a service yesterday afternoon states he was wearing a sweater and felt very hot and knew he was going to pass out.� He says he woke up with many people around him.
� There was no reported seizure-like activity, incontinence, tongue biting, or postictal state.�
�He denies associated chest pain or pressure, headache, neck pain, numbness, tingling, focal weakness, dyspnea, or other complaints.� He has been feeling generally well ever since with the exception of difficulty walking due to right knee and left
ankle discomfort particular with trying to stand or walk.� He did hit his head during this event and is on aspirin and Plavix.
� He denies headache, change in vision, photophobia, change in speech, dizziness, neck pain, numbness, tingling, chest pain, dyspnea, abdominal pain, or other complaints.� Patient states he has been eating and drinking as usual.� He is generally
compliant with his medications.
Syncopal event
-Unclear etiology may have been vasovagal/
-Known history of Mobitz 1 heart block which persists
-Unclear may have had further block as cause of event
-Not on any chronotropic medications
-Last documented Mobitz 1 was back in July at time of NSTEMI at that time beta-blockade was stopped
-Telemetry/cardiology consultation
Acute kidney injury on chronic kidney disease stage IIIb
-Hold nephrotoxic's
-Farxiga held
-Hold furosemide
-Hold glimepiride
-Cautious hydration now withheld due to dyspnea and fatigue after the increase in IV fluids overnight
-Trend BMP>>. 1.7 baseline close to 1.4>> 1.6
-Nephrology consult
Coronary artery disease
-Prior RCA stent/continue Plavix and aspirin
-Isosorbide to continue
-Recent NSTEMI with apical LAD occlusion noted preserved EF
-Continue statin and Zetia
Pfa-egrdwva-nroqeaobu diabetes mellitus
-Blood sugar at the time of event no documented hypoglycemia
-Hold glimepiride
-Low-dose sliding scale coverage
-Hold metformin
Essential hypertension
-Continue amlodipine, hydralazine,
Had head trauma as part of episode of syncope/also inability to weight-bear on his left ankle
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
-X-rays of the knee and ankle negative for fracture
-PT/OT assessment if inability to weight-bear will get orthopedic consultation pending x-ray results
PLAN: Admit to telemetry
Full CODE STATUS
DVT prophylaxis with heparin
Anticipated Discharge: Within 24 hours
Subjective/Interval History
-
Date of Service: December 08, 2023
Significant fatigue and short of breath after the increase in IV fluids to 100 cc which was eventually reduced to 60 cc overnight but remains fatigued and short of breath this morning.
Objective Data
-
Labs:
Laboratory Results
12/08/23
06:39
Sodium 137
Potassium 4.1
Chloride 108 H
Carbon Dioxide 22
BUN 26 H
Creatinine 1.6 H
Glucose 119 H
Calcium 9.1
Vital Signs:
Vital Signs
Temp Pulse Resp BP Pulse Ox
98.2 F 68 16 158/70 97
12/08/23 07:10 12/08/23 08:26 12/08/23 08:26 12/08/23 08:00 12/08/23 08:26
I&O
12/07/23 12/08/23 12/09/23
06:59 06:59 06:59
Intake Total 750 / 750 2119
Output Total 400 / 400 425 / 425
Balance 350 / 350 1695 / 1695
Review of Systems
-
Constitutional: Reports Weight Gain, Fatigue and Weakness
Cardiac: Reports No Symptoms
Musculoskeletal: Reports Joint Swelling (Improved) and Edema (Improve left ankle)
Physical Exam
-
General: Well Developed
HEENT: Normocephalic
Respiratory: Clear to Auscultation
Cardiac: Irregular Rhythm (Mobitz 1)
GI: Soft, Nontender and Nondistended
Musculoskeletal: No Edema
Neuro: Awake and Alert
Data Reviewed
-
Total Time Spent with Patient (in minutes): 56
Labs: Labs Reviewed by me (Creatinine down to 1.6 BUN 26 sodium 137 blood sugar 129)
--- NOTE | 2023-12-08 09:58 | W.PN.CARDCBS ---
Today's Communication / Plan
-
Will defer management of IVF and diuretics to nephrology
Tele shows sinus rhythm with Wenkebach, but no high grade AV block or significant pauses
Impression / Plan
-
PCP: Shaggy Bishop [facility]
Cardiology: Dr. PHILIP Cao
Assessment:
Presented 12/06/2023 with syncope, dizziness
ANDREA on CKD
Bradycardia with 2nd Type 2 heart block
CAD
s/p overlapping 3.5 mm and 3.0 mm Xience stents�to RCA 07/26/20
stable and patent RCA stents, new apical LAD 100% occlusion and stable vs slightly angiographically worse 70-80% Diag-1 lesion by cath 07/26/23
Second-degree AV block- chronic
Chronic heart failure with preserved ejection fraction
COPD
Chronic kidney disease stage IIIb
History of lung cancer status post lobectomy
Diabetes type 2
Hypertension
Hyperlipidemia
TIA
Echo 07/27/23: EF 55-60%, mid to distal inferior wall appears hypokinetic, mild conc LVH, structurally normal AV without /AR, no MR
Cardiac cath 07/2023:stable and patent RCA stents, new apical LAD 100% occlusion and stable vs slightly angiographically worse 70-80% Diag-1 lesion
Ex Mibi 07/25: Small mild to moderate mildly reversible inferolateral and inferior defect at 3.4 METS.� EF 77%
7 day bardy Monitor completed 11/12/2023: Predominantly sinus rhythm with first-degree AV block as well as second-degree type I with 2-1 conduction which accounted for less than 1% of total time and high-grade AV block with junctional escape producing
AV disassociation during sleep. There were no pauses in excess of 2 seconds. There was very rare PVCs. Range 36 to 105 bpm, average 62 bpm
Patient is a 78-year-old male with complex past medical history including coronary artery disease status post RCA PCI 2019, second-degree heart block, chronic heart failure with preserved ejection fraction, chronic kidney disease stage IIIb, COPD,
peripheral vascular disease, hypertension, hyperlipidemia, diabetes type 2, and status post right lobectomy with history of lung cancer in 1989 and 2007. Patient reports he was recently seen by Dr. Cao in early November 2023 and noted be
hypertensive. His hydralazine was increased to 50 mg 3 times daily for hypertension. He wore an outpatient monitor which was completed 11/12/2023 which demonstrated predominantly sinus rhythm with first-degree AV block as well as second-degree type
I with 2-1 conduction which accounted for less than 1% of total time and high-grade AV block with junctional escape producing AV disassociation during sleep. There were no pauses in excess of 2 seconds. There was very rare PVCs.
Patient reports he went to [employer] yesterday morning and forgot to take his morning medications. When he returned from [employer] he took them late morning/early afternoon and then proceeded to go to a week for a close friend that he lost. He reports
he started to feel warm and flush and got dizzy. Next thing you know he woke up on the floor with people standing around him. He denied loss of bowel or bladder function. Given complaints of difficulty walking with knee and ankle discomfort he
decided to come to the emergency department for evaluation. He also admitted to hitting his headache. In emergency library circulation department chief CT was unremarkable. Troponin was negative x 1. EKG showed sinus rhythm with second-degree AV block type I. Blood
pressure was stable. He was noted to have ANDREA with creatinine of 1.9. Patient admits that he probably was not well-hydrated yesterday or today. Currently he denies chest pain, shortness of breath, dizziness, lightheadedness, edema, orthopnea or
PND. He reports his weight has been stable at home. He has been compliant taking his medications.
Plan:
-Presents 12/06/2023 with syncope on 12/05/2023 associated with dizziness and lightheadedness - describes clear prodrome to me, suspect vasovagal syncope
-Patient noted to have ANDREA on CKD with creatinine of 1.9. Dehydration may be contributing as well.
-Lasix on hold with ANDREA, receiving IVF. Reporting SOB overnight and IVF rate was reduced. Would consider discontinuing, but will defer to nephrology. May need lower dose of lasix as an outpatient, previously on 40mg daily.
-Telemetry with second-degree AV block type I which is known. No significant pauses or high grade AV block on my review.
-Would continue to monitor on telemetry while inpatient
-Treatment of hypertension with hydralazine and amlodipine
-Known coronary artery disease with recent cardiac catheterization July 2023 with stable CAD but ruled in for NSTEMI at that time
-Continue aggressive medical management with aspirin, Plavix, Zetia, statin. Bradycardia and heart block prevent initiation of beta-aníbal.
Progress Note - Recreation Worker
Subjective
Date of Service: December 08, 2023
Patient tells me he was SOB overnight and IVF were decreased. Feels better this AM. Otherwise feels well. No lightheadedness or dizziness. No chest pain.
Objective
Labs:
12/06/23 11:49
12/08/23 06:39
Labs
Hgb 13.2 g/dL (13.0-18.0) 12/06/23 11:49
Hct 40.1 % (39.0-52.0) 12/06/23 11:49
Plt Count 205 10^3/uL (130-400) 12/06/23 11:49
Sodium 137 mmol/L (135-145) 12/08/23 06:39
Potassium 4.1 mmol/L (3.5-5.1) 12/08/23 06:39
BUN 26 mg/dl (9-20) H 12/08/23 06:39
Creatinine 1.6 mg/dL (0.7-1.3) H 12/08/23 06:39
Glucose 119 mg/dl (70-99) H 12/08/23 06:39
Troponins
12/06/23 12/06/23 12/07/23
11:49 17:55 00:50
Troponin I 0.015 0.015 0.014
12/07/23
06:16
Troponin I 0.013
Vital Signs and I&O:
Vital Signs
Temp Pulse Resp BP Pulse Ox
98.2 F 68 16 158/70 97
12/08/23 07:10 12/08/23 08:26 12/08/23 08:26 12/08/23 08:00 12/08/23 08:26
Vital Signs
Temp Pulse Resp BP Pulse Ox
98.2 F 68 16 158/70 97
12/08/23 07:10 12/08/23 08:26 12/08/23 08:26 12/08/23 08:00 12/08/23 08:26
Intake & Output
12/06/23 12/07/23 12/08/23 12/09/23
06:59 06:59 06:59 06:59
Intake Total 750 / 750 2120 / 2120
Output Total 400 / 400 425 / 425
Balance 350 / 350 1695 / 1695
Physical Exam
Physical Exam
Gen: NAD, AAOx3
HEENT: NC/AT, sclera anicteric
Neck: No JVD
CV: RRR, NL s1/s2
Lungs: CTAB
Abd: S/ND
Ext: No LE edema
Skin: Warm, dry
Neuro: Non-focal
[2023-12-08 11:10] VITALS: BP 150/71
[2023-12-08] MEDS: TYLENOL 650 MG PO (11:25)
[2023-12-08 11:49] LABS: Glucose - Point of Care 135 mg/dl (70-99)
[2023-12-08 15:10] VITALS: BP 141/65
--- NOTE | 2023-12-08 15:16 | W.PN.NEPH.PH ---
Today's Communication / Plan
-
observe
can hold further IVFs
follow up bmp
Assessment/Plan
-
Assessment:
Syncopal Event
ANDREA on CKD
CAD
NIDDM
HTN
Plan:
- bl Cr 1.5 per last nephrology visit with Dr. Balderrama, now down to 1.6
- holding farxiga, lasix, glimeride, metformin
-discharge off Farxiga
- UA with glucosuria, likely in the setting of farxiga
- urine Na 59 --> not consistent with hypovolemia but was done while on fluids
- reviewed KUS from 2020. noted to have bilateral renal cysts and no PVR
-should be good for dischcarge tomorrow
-
-
Date of Service: December 08, 2023
CC / HPI / ROS
-
Chief Complaint:
ANDREA on CKD
History of Present Illness:
bl Cr 1.5, peak 1.9, improved to 1.6 with holding meds
hemodynamically stable
Review of Systems:
no complaints
feels back to his baseline state of health
Labs
-
Labs:
WBC 9.8 10^3/uL (4.8-10.8) 12/06/23 11:49
RBC 4.79 10^6/uL (4.70-6.10) 12/06/23 11:49
Hgb 13.2 g/dL (13.0-18.0) 12/06/23 11:49
Hct 40.1 % (39.0-52.0) 12/06/23 11:49
Plt Count 205 10^3/uL (130-400) 12/06/23 11:49
Sodium 137 mmol/L (135-145) 12/08/23 06:39
Potassium 4.1 mmol/L (3.5-5.1) 12/08/23 06:39
Chloride 108 mmol/L (98-107) H 12/08/23 06:39
Carbon Dioxide 22 mmol/L (22-30) 12/08/23 06:39
BUN 26 mg/dl (9-20) H 12/08/23 06:39
Creatinine 1.6 mg/dL (0.7-1.3) H 12/08/23 06:39
eGFR 43.56 12/08/23 06:39
Glucose 119 mg/dl (70-99) H 12/08/23 06:39
Calcium 9.1 mg/dl (8.4-10.2) 12/08/23 06:39
Albumin 4.3 g/dl (3.5-5.0) 12/06/23 11:49
Physical Exam
-
Vital Signs:
Vital Signs
Temp Pulse Resp BP Pulse Ox
98.2 F 51 18 150/71 95
12/08/23 11:10 12/08/23 11:10 12/08/23 11:10 12/08/23 11:10 12/08/23 11:10
Respiratory:: Bilateral: CTA
Lung Excursion:: Normal
Abdomen:: Nontender and Soft
Bowel Sounds:: Normal
Extremity Edema:: +1: Bilateral:
Hairston Catheter: No
--- NOTE | 2023-12-08 15:58 | CM ---
Spoke with patient in room.
Offered VN at home He declined need.
IMM reviewed Copy given . Copy signed on chart.
He said his will drive him home.
PLAN Home no needs
--- NOTE | 2023-12-08 16:04 | PTCARENOTE ---
Pt AAO x3, pleasant and cooperative; MARKS; OOB to chair/ambulatory to BR with minimal assistance; no c/o weakness/dizziness. Pt occ c/o 'knees ache' with OOB activity; good effect with prn Po Tylenol. VSS. Telemetry:currently NSR with first degree
AVB. On room air- pulseox 92%, no c/o SOB. Abd large, soft, rupali PO well. Voiding in BR without difficulty. Resting in bed at present, no c/o. Will continue to monitor.
[2023-12-08 16:36] LABS: Glucose - Point of Care 105 mg/dl (70-99)
[2023-12-08] MEDS: LIPITOR 80 MG PO (17:10)
[2023-12-08] MEDS: PROTONIX 40 MG PO (17:10)
[2023-12-08 19:47] VITALS: BP 134/64
[2023-12-08 21:16] LABS: Glucose - Point of Care 130 mg/dl (70-99)
[2023-12-08 23:31] VITALS: BP 141/66
[2023-12-09 03:34] VITALS: BP 147/67
[2023-12-09 06:00] VITALS: BMI 24.4
[2023-12-09 06:58] LABS: Blood Urea Nitrogen 28 mg/dl (9-20); Calcium 9.7 mg/dl (8.4-10.2); Carbon Dioxide 22 mmol/L (22-30); Chloride 105 mmol/L (98-107); Estimated Creatinine Clearance 41 ml/min; Glucose 120 mg/dl (70-99); Potassium 4.4 mmol/L (3.5-5.1); Sodium 138 mmol/L (135-145)
[2023-12-09] MEDS: STRIVERDI RESPIMAT 2 PUFF INH (07:31)
[2023-12-09] MEDS: SPIRIVA RESPIMAT 2.5 MCG 2 PUFF INH (07:31)
[2023-12-09 07:35] VITALS: BP 114/76
[2023-12-09] MEDS: IMDUR (EXTENDED RELEASE) 60 MG PO (08:36)
[2023-12-09] MEDS: NORVASC 5 MG PO (08:36)
[2023-12-09] MEDS: LOW STRENGTH ASPIRIN 81 MG PO (08:37)
[2023-12-09] MEDS: ZETIA 10 MG PO (08:37)
[2023-12-09] MEDS: APRESOLINE 50 MG PO (08:37)
[2023-12-09] MEDS: PLAVIX 75 MG PO (08:37)
[2023-12-09] MEDS: HEPARIN 5000 UNITS SC (08:37)
[2023-12-09] MEDS: ZYLOPRIM 100 MG PO (08:37)
[2023-12-09 08:42] LABS: Glucose - Point of Care 118 mg/dl (70-99)
--- NOTE | 2023-12-09 09:38 | W.DS.TRANS ---
DC Summary - [employer]
-
Discharge Instructions:
Discharge Diagnosis/Procedures Syncope
Acute kidney injury on chronic kidney disease
Left ankle sprain
Diet Diabetic, Carb Controlled
Activity As tolerated
Additional Activity Weightbearing on left ankle with usage of cane
Driving Restrictions As prior to admission
Other Services VN,PT
Instructions:
Stand-Alone Forms:
Changes to Home Medications: Yes
Discharge Medications:
DC Medications w/original date entered in [employer]
allopurinol 100 mg tablet 100 mg PO BID Gout 07/26/20
pantoprazole 40 mg tablet,delayed release 40 mg PO QPM Gastrointestinal Issue 07/26/20
albuterol sulfate 90 mcg/actuation aerosol inhaler 2 puff inhalation R Q4HPRN PRN sob/wheezing 07/03/23
atorvastatin 40 mg tablet 80 mg PO QPM High Cholesterol 07/03/23
colchicine 0.6 mg tablet 0.6 mg PO DAILYPRN PRN gout 07/03/23
furosemide 40 mg tablet 40 mg PO DAILY Fluid Retention/Swelling 07/03/23
umeclidinium 62.5 mcg-vilanterol 25 mcg/actuation powdr for inhalation (Anoro Ellipta) 1 inh inhalation R DAILY Lung/Breathing Issues 07/03/23
aspirin 81 mg chewable tablet 81 mg PO DAILY Blood Clot Prevention/Tx 07/23/23
clopidogrel 75 mg tablet 75 mg PO DAILY #30 tabs 07/27/23
ezetimibe 10 mg tablet 10 mg PO DAILY #30 tabs 07/27/23
isosorbide mononitrate 60 mg tablet,extended release 24 hr 60 mg PO DAILY #30 tabs 07/27/23
nitroglycerin 0.4 mg sublingual tablet 0.4 mg sublingual [id number] PRN ANGINA #30 tabs 07/27/23
amlodipine 5 mg tablet 5 mg PO DAILY Blood Pressure 12/06/23
glimepiride 2 mg tablet 2 mg PO DAILY Diabetes 12/06/23
hydralazine 50 mg tablet 50 mg PO TID Blood Pressure 12/06/23
metformin 500 mg tablet,extended release 24 hr 500 mg PO DAILY Diabetes 12/06/23
Home Medication Changes
Stop Farxiga
Pending Results: No
Total time spent discharging patient (in min): 45
--- NOTE | 2023-12-09 10:27 | PTCARENOTE ---
Reviewed discharge instructions with patient and . Both verbalize understanding of teaching. Heart failure teaching reinforced. Patient and verbalize understanding of lasix usage, daily weight, and fluid restriction. Patient and
understand when to call the doctor. IV removed. Tele removed. Patient evaluated by PT. Patient cleared for discharge with cane usage. Patient has at bedside for transportation.
--- NOTE | 2023-12-09 10:36 | W.DCSUMMARY ---
Discharge Summary
Discharge Data
Date of Admission: 12/06/23
Date of Discharge: 12/09/23
Total time spent discharging patient (in min): 38
-
Pending Results: No
Hospital Course
78-year-old male who was at a service yesterday afternoon states he was wearing a sweater and felt very hot and knew he was going to pass out.� He says he woke up with many people around him.
� There was no reported seizure-like activity, incontinence, tongue biting, or postictal state.�
�He denies associated chest pain or pressure, headache, neck pain, numbness, tingling, focal weakness, dyspnea, or other complaints.� He has been feeling generally well ever since with the exception of difficulty walking due to right knee and left
ankle discomfort particular with trying to stand or walk.� He did hit his head during this event and is on aspirin and Plavix. He did also present with significant swelling of his left ankle and some knee tenderness although no fractures were seen
on x-rays.
Our concern at the time of admission is that the syncopal event although sounding very much like a vasovagal event given his history of Mobitz 1 second-degree AV block could have been involved in any transitory fashion and he was admitted to the
telemetry unit and cardiology was consulted
Another concern we had is the patient's acute kidney injury on top of his chronic kidney disease stage IIIb and we held nephrotoxins that included his furosemide glimepiride and he was placed on cautious hydration as we did note that his baseline
creatinine of 1.4 had risen to 1.7. Nephrology was consulted they agreed with initial course of IV fluids
On telemetry throughout the length of his admission the patient did not manifest any significant higher grade AV block and cardiology felt this was not the instigating influence and a syncopal event there were no changes made in his medication
management in that regard. Patient after a course of IV hydration started to improve his azotemia however after increasing his course of IV fluids to 100 cc an hour the patient developed onset of fatigue overnight on the second hospital day and
necessitating further discontinuation of his IV fluids nephrology felt that we should continue to hold his course of Farxiga and will not be continued at discharge. His urine sodium of 59 was not consistent with hypovolemia.
His left ankle swelling and pain has significantly improved although he is weightbearing is still somewhat limited in his ability to ambulate and will have physical therapy see him on an outpatient basis for further follow-up
Only medication change at time of discharge will be discontinuation of his Farxiga he can resume his furosemide metformin and glimepiride
Discharge Plan
-
Patient Disposition: Home with Home Care
Discharge Diagnosis/Procedures: Syncope
Acute kidney injury on chronic kidney disease
Left ankle sprain
Condition: Good
Diet: Diabetic, Carb Controlled
Activity: As tolerated
Additional Activity: Weightbearing on left ankle with usage of cane
Driving Restrictions: As prior to admission
Other Services: VN and PT
Referrals:
Triston Bishop CRNP [Family Provider] - in less than 1 week
Prescriptions:
Continued
allopurinol 100 MG tablet
100 mg PO BID
pantoprazole 40 MG tablet,delayed release (DR/EC)
40 mg PO QPM
furosemide 40 mg Tablet
40 mg PO DAILY
albuterol sulfate 90 mcg/actuation Hfa Aerosol Inhaler
2 puff INHALATION R Q4HPRN PRN (Reason: sob/wheezing)
colchicine 0.6 mg Tablet
0.6 mg PO DAILYPRN PRN (Reason: gout)
Anoro Ellipta 62.5-25 mcg/actuation Blister With Device
1 inh INHALATION R DAILY
atorvastatin 40 MG tablet
80 mg PO QPM
aspirin 81 mg Tablet,Chewable
81 mg PO DAILY
clopidogrel 75 mg Tablet
75 mg PO DAILY Qty: 30 0RF
isosorbide mononitrate 60 mg Tablet Extended Release 24 Hr
60 mg PO DAILY Qty: 30 0RF
nitroglycerin 0.4 mg Tablet, Sublingual
0.4 mg sublingual [id number] PRN (Reason: ANGINA) Qty: 30 0RF
ezetimibe 10 mg Tablet
10 mg PO DAILY Qty: 30 0RF
glimepiride 2 mg tablet
2 mg PO DAILY
hydralazine 50 mg tablet
50 mg PO TID
metformin 500 mg tablet extended release 24 hr
500 mg PO DAILY
amlodipine 5 mg tablet
5 mg PO DAILY
Discontinued
dapagliflozin propanediol [Farxiga] 10 mg Tablet
10 mg PO DAILY
Discharge Orders:
Discharge Patient (As Directed); Ordered 12/09/23
Ordered By: Ta Hooks
--- NOTE | 2023-12-09 10:41 | CM ---
MD entered order for discharge.
Offered VN at home He declined need.
He said his will drive him home.
PLAN Home no needs
== END 2023-12-09 11:06 | disposition home or self-care (01) | DRG 683 ==
LOC: 4 EAST ACU 16:01
PROVIDERS: Student in an Organized Health Care Education/Training Program; ADMITTING PHYSICIAN Internal Medicine; CONSULT PHYSICIAN Internal Medicine Cardiovascular Disease; CONSULT PHYSICIAN Student in an Organized Health Care Education/Training Program; EMERGENCY PHYSICIAN Emergency Medicine; FAMILY PHYSICIAN Nurse Practitioner Family
DX: N17.9 Acute kidney failure, unspecified (principal); I13.0 Hypertensive heart and chronic kidney disease with heart failure and stage 1 through stage 4 chronic kidney disease, or unspecified chronic kidney disease; I50.32 Chronic diastolic (congestive) heart failure; R55 Syncope and collapse; I25.10 Atherosclerotic heart disease of native coronary artery without angina pectoris; F03.90 Unspecified dementia, unspecified severity, without behavioral disturbance, psychotic disturbance, mood disturbance, and anxiety; E78.00 Pure hypercholesterolemia, unspecified; J44.9 Chronic obstructive pulmonary disease, unspecified; I44.1 Atrioventricular block, second degree; N18.32 Chronic kidney disease, stage 3b; E11.22 Type 2 diabetes mellitus with diabetic chronic kidney disease; R00.1 Bradycardia, unspecified; M10.9 Gout, unspecified; M06.9 Rheumatoid arthritis, unspecified; S93.402A Sprain of unspecified ligament of left ankle, initial encounter; W18.39XA Other fall on same level, initial encounter; I25.2 Old myocardial infarction; Z79.02 Long term (current) use of antithrombotics/antiplatelets; Z79.82 Long term (current) use of aspirin; Z79.84 Long term (current) use of oral hypoglycemic drugs; Z79.899 Other long term (current) drug therapy; Z92.3 Personal history of irradiation; Z85.118 Personal history of other malignant neoplasm of bronchus and lung; Z86.73 Personal history of transient ischemic attack (TIA), and cerebral infarction without residual deficits; Z87.891 Personal history of nicotine dependence; Z95.5 Presence of coronary angioplasty implant and graft
CPT/HCPCS: 70450; 71046; 73564; 73610; 80048; 80053; 81003; 82962; 83036; 84300; 84484; 85025; 93005; 94640; 96374; 97162; 99285

== ENCOUNTER → 2024-07-05 06:18 | Day surgery (SDC) | payer MEDICARE, OTHER, SELFPAY ==
[2024-07-05 08:06] LABS: Glucose - Point of Care 126 mg/dl (70-99)
== END ==
LOC: GI 06:18
PROVIDERS: ATTENDING PHYSICIAN Specialist
DX: Z12.11 Encounter for screening for malignant neoplasm of colon (principal); D12.3 Benign neoplasm of transverse colon; D12.5 Benign neoplasm of sigmoid colon; K63.5 Polyp of colon; K57.30 Diverticulosis of large intestine without perforation or abscess without bleeding; Z86.0101 Personal history of adenomatous and serrated colon polyps
CPT/HCPCS: 45385; 45380; 88305; 82962

== ENCOUNTER → 2024-11-22 15:18 | Outpatient (REF) | payer MEDICARE, OTHER, SELFPAY ==
[2024-11-22 17:17] LABS: Blood Urea Nitrogen 22 mg/dl (9-20); Carbon Dioxide 25 mmol/L (22-30); Chloride 104 mmol/L (98-107); Glucose 94 mg/dl (70-99); Potassium 4.5 mmol/L (3.5-5.1); Sodium 141 mmol/L (135-145); eGFR 50.81
[2024-11-22 17:26] LABS: NT-proBNP 86.4 pg/ml
[2024-11-22 18:19] LABS: Microalbumin, Random Urine 43.3 mg/dl (0.6-1.7); Microalbumin/creatinine Ratio 505.8 mg/g
== END ==
LOC: RAD 15:18
PROVIDERS: ATTENDING PHYSICIAN Nurse Practitioner Family; REFERRING PHYSICIAN Specialist
DX: R60.0 Localized edema (principal); I10 Essential (primary) hypertension; R06.09 Other forms of dyspnea; N18.30 Chronic kidney disease, stage 3 unspecified
CPT/HCPCS: 36415; 71046; 80048; 82043; 82570; 83880; 93971

== ENCOUNTER → 2025-02-12 09:26 | Outpatient (REF) | payer MEDICARE, OTHER, SELFPAY | LOC: HWRCS 09:26 | PROVIDERS: ATTENDING PHYSICIAN Internal Medicine Cardiovascular Disease; FAMILY PHYSICIAN Nurse Practitioner Family | DX: I25.10 Atherosclerotic heart disease of native coronary artery without angina pectoris (principal) | CPT/HCPCS: 93306 ==

== ENCOUNTER → 2025-02-14 06:35 | Outpatient (REF) | payer MEDICARE, OTHER, SELFPAY ==
[2025-02-14 07:37] LABS: HDL Cholesterol 50 mg/dl; LDL Cholesterol, Calculated 46 mg/dl; Total Cholesterol 128 mg/dl (50-199); Triglyceride 161 mg/dl (10-149); Very Low Density Lipoprotein 32 mg/dl (0-30)
== END ==
LOC: RCS 06:35
PROVIDERS: ATTENDING PHYSICIAN Internal Medicine Cardiovascular Disease; FAMILY PHYSICIAN Nurse Practitioner Family; REFERRING PHYSICIAN Registered Nurse
DX: I44.1 Atrioventricular block, second degree (principal); I50.32 Chronic diastolic (congestive) heart failure
CPT/HCPCS: 36415; 78452; 80061; 93017; A9500

== ENCOUNTER → 2025-09-20 10:40 | Outpatient (REF) | payer MEDICARE, OTHER, SELFPAY | LOC: RAD 10:40 | PROVIDERS: FAMILY PHYSICIAN Nurse Practitioner Family | DX: M54.41 Lumbago with sciatica, right side (principal); M25.551 Pain in right hip | CPT/HCPCS: 72110; 73502 ==